=== PATIENT | female | born 1955 | race African-American/Black ===

== ENCOUNTER 2019-01-03 16:00 | Inpatient (IN) | payer MEDICAID ==
[~2019-01-03] VITALS: Ht 167.6 cm; Wt 76.2 kg
[2019-01-03] MEDS ORDERED: KETOROLAC 30MG/ML VIAL IV ONE (18:00)
[2019-01-03 18:50] LABS: BASOPHILS % 0.9 % (0.0-2.0); EOSINOPHILS % 3.1 % (0.0-5.0); HEMATOCRIT. 36.9 % (36.0-48.0); HEMOGLOBIN. 12.7 g/dL (12.0-16.0); LYMPHOCYTES % 27.6 % (20.0-50.0); MEAN CORPUSCULAR VOLUME 84.2 fL (81.0-99.0); MEAN PLATELET VOLUME 8.6 fl (7.4-10.4); MONOCYTES % 8.2 % (2.0-8.0); NEUTROPHILS % 60.2 % (40.0-76.0); PLATELET 118 x1000/uL (130-400); RED BLOOD CELL COUNT 4.38 mill/uL (4.2-5.4); RED CELL DISTRIBUTION WIDTH 12.9 % (11.6-14.6)
[2019-01-03 18:52] LABS: CHLORIDE 99 mEq/L (98-107)
[2019-01-03 18:54] LABS: INR 1.1; PARTIAL THROMBOPLASTIN TIME 29.9 sec (23.4-31.0); PROTHROMBIN TIME 11.2 sec (9.6-11.0)
[2019-01-03 18:56] LABS: ETHANOL BLOOD < 10 mg/dL
[2019-01-03 19:00] LABS: CREATINE KINASE 209 IU/L (26-192)
[2019-01-03] MEDS: DEXT 5%/0.45% NACL 1000ML 1,000 ML IV SCH (22:41)
[2019-01-03] MEDS ORDERED: ONDANSETRON HCL 4MG/2ML INJ IV PRN (22:45)
[2019-01-03] MEDS ORDERED: DOCUSATE SODIUM 100MG CAPSULE PO PRN (22:45)
[2019-01-03] MEDS ORDERED: DEXTROSE 50% WATER 50ML SYRINGE IV PRN (22:45)
[2019-01-03] MEDS ORDERED: TRAMADOL 50MG TABLET PO PRN (22:45)
[2019-01-03] MEDS ORDERED: ACETAMINOPHEN 325MG TABLET PO PRN (22:45)
[2019-01-03] MEDS ORDERED: MAGNESIUM/ALUMINUM HYDROXIDE/SIMETHICONE 30ML UDC PO PRN (22:45)
[2019-01-03] MEDS ORDERED: IPRATROPIUM/ALBUTEROL 0.5-3(2.5)MG/3ML NEB INH PRN (22:45)
[2019-01-03] MEDS ORDERED: GUAIFENESIN 200MG/10ML SUGAR FREE UDC PO PRN (22:45)
[2019-01-03] MEDS ORDERED: NITROGLYCERIN 0.4MG TABLET SL SL PRN (22:45)
[2019-01-03] MEDS ORDERED: LORAZEPAM 0.5MG TABLET PO PRN (22:45)
[2019-01-04] MEDS: CLONIDINE 0.1MG TABLET PO PRN ×3 (01:20→23:01)
[2019-01-04 02:00] VITALS: BP 141/91
[2019-01-04] MEDS: ZOLPIDEM TARTRATE 5MG TABLET PO PRN ×2 (03:26→23:00)
[2019-01-04 04:17] LABS: VITAMIN B12 SERUM 199 pg/mL (211-911)
[2019-01-04 04:34] LABS: FOLIC ACID (FOLATE) SERUM > 20.00 ng/mL (>5.38)
[2019-01-04] MEDS: BLOOD SUGAR DIAGNOSTIC STRIP TEST SCH ×4 (06:40→20:44)
[2019-01-04 08:00] VITALS: BP 160/135
[2019-01-04] MEDS: INSULIN LISPRO 100 UNITS/ML SUBCUT SCH ×4 (08:17→21:15)
[2019-01-04] MEDS: FAMOTIDINE 20MG TABLET PO SCH ×2 (08:26→20:43)
[2019-01-04] MEDS: METOPROLOL TARTRATE 25MG TABLET PO SCH ×2 (08:26→20:44)
[2019-01-04] MEDS: FERROUS SULFATE 300MG/5ML UDC PO SCH ×3 (08:26→16:41)
[2019-01-04] MEDS: ENOXAPARIN 40MG/0.4ML SYR SUBCUT SCH (08:27)
[2019-01-04] MEDS: DEXT 5%/0.45% NACL 1000ML 1,000 ML IV SCH ×2 (08:33→16:41)
[2019-01-04 12:00] VITALS: BP 150/111
[2019-01-04] MEDS: MORPHINE SULFATE 2 MG/ML CPJ (NOT FOR IM USE) IV PRN ×2 (12:05→21:18)
[2019-01-04] MEDS: CYANOCOBALAMIN 1000MCG/ML VIAL IM SCH (12:46)
[2019-01-04 16:00] VITALS: BP 170/100
[2019-01-04 20:00] VITALS: BP_SYST 166; BP_SYST 171; BP_DIAS 100; BP_DIAS 101
[2019-01-05] VITALS: BP 149/99
[2019-01-05] MEDS: DEXT 5%/0.45% NACL 1000ML 1,000 ML IV SCH ×2 (00:37→15:22)
[2019-01-05 04:00] VITALS: BP 154/102
[2019-01-05] MEDS: CLONIDINE 0.1MG TABLET PO PRN ×2 (05:18→12:45)
[2019-01-05] MEDS: BLOOD SUGAR DIAGNOSTIC STRIP TEST SCH ×4 (06:56→21:10)
[2019-01-05] MEDS: INSULIN LISPRO 100 UNITS/ML SUBCUT SCH ×4 (06:56→21:23)
[2019-01-05 08:00] VITALS: BP 140/97
[2019-01-05] MEDS: FAMOTIDINE 20MG TABLET PO SCH ×2 (08:31→21:10)
[2019-01-05] MEDS: CYANOCOBALAMIN 1000MCG/ML VIAL IM SCH (08:31)
[2019-01-05] MEDS: METOPROLOL TARTRATE 25MG TABLET PO SCH ×2 (08:32→21:10)
[2019-01-05] MEDS: ENOXAPARIN 40MG/0.4ML SYR SUBCUT SCH (08:33)
[2019-01-05] MEDS: FERROUS SULFATE 300MG/5ML UDC PO SCH ×3 (08:43→17:14)
[2019-01-05] MEDS: KETOROLAC 15MG/ML VIAL IV PRN ×2 (10:46→21:22)
[2019-01-05 12:00] VITALS: BP 128/100
[2019-01-05] MEDS ORDERED: GADOBENATE DIMEGLUMINE 529 MG/ML 10ML IV ONE (13:12)
[2019-01-05 16:00] VITALS: BP 154/97
[2019-01-05 20:00] VITALS: BP 168/111
[2019-01-05] MEDS: ZOLPIDEM TARTRATE 5MG TABLET PO PRN (21:22)
[2019-01-06] VITALS: BP 158/98
[2019-01-06] MEDS: CLONIDINE 0.1MG TABLET PO PRN (00:44)
[2019-01-06] MEDS: DEXT 5%/0.45% NACL 1000ML 1,000 ML IV SCH ×3 (00:44→21:46)
[2019-01-06 04:00] VITALS: BP 144/97
[2019-01-06] MEDS: BLOOD SUGAR DIAGNOSTIC STRIP TEST SCH ×4 (06:59→21:25)
[2019-01-06] MEDS: INSULIN LISPRO 100 UNITS/ML SUBCUT SCH ×4 (07:07→21:00)
[2019-01-06] MEDS: FERROUS SULFATE 300MG/5ML UDC PO SCH ×3 (07:50→17:31)
[2019-01-06 08:00] VITALS: BP 144/92
[2019-01-06] MEDS: ENOXAPARIN 40MG/0.4ML SYR SUBCUT SCH (09:01)
[2019-01-06] MEDS: METOPROLOL TARTRATE 25MG TABLET PO SCH ×2 (09:01→21:05)
[2019-01-06] MEDS: FAMOTIDINE 20MG TABLET PO SCH ×2 (09:02→21:25)
[2019-01-06] MEDS: CYANOCOBALAMIN 1000MCG/ML VIAL IM SCH (09:02)
[2019-01-06 12:00] VITALS: BP 151/99
[2019-01-06] MEDS ORDERED: BISACODYL 10MG SUPP PR SCH ×2 (12:45→13:15)
[2019-01-06] MEDS ORDERED: LACTULOSE 20G/30ML UDC PO STA (12:52)
[2019-01-06] MEDS: DOCUSATE SODIUM 100MG CAPSULE PO SCH ×2 (12:57→21:00)
[2019-01-06] MEDS: LACTULOSE 20G/30ML UDC PO SCH ×3 (12:58→21:00)
[2019-01-06] MEDS ORDERED: BISACODYL 10MG SUPP PR ONE (13:00)
[2019-01-06] MEDS ORDERED: DOCUSATE SODIUM 100MG CAPSULE PO SCH (13:00)
[2019-01-06] MEDS: KETOROLAC 15MG/ML VIAL IV PRN ×2 (13:01→21:25)
[2019-01-06 16:00] VITALS: BP 99/62
[2019-01-06 20:00] VITALS: BP 165/99
[2019-01-06] MEDS ORDERED: POLYETHYLENE GLYCOL 3350 (17GM) 1 DOSE PACK PO SCH ×2 (21:00)
[2019-01-06] MEDS: ZOLPIDEM TARTRATE 5MG TABLET PO PRN (23:45)
[2019-01-07] VITALS: BP 145/99
[2019-01-07] MEDS: CLONIDINE 0.1MG TABLET PO PRN ×2 (00:02→03:56)
[2019-01-07 04:00] VITALS: BP 151/102
[2019-01-07] MEDS: BLOOD SUGAR DIAGNOSTIC STRIP TEST SCH (07:20)
[2019-01-07] MEDS: INSULIN LISPRO 100 UNITS/ML SUBCUT SCH (07:50)
[2019-01-07] MEDS: FERROUS SULFATE 300MG/5ML UDC PO SCH (07:50)
[2019-01-07] MEDS: CYANOCOBALAMIN 1000MCG/ML VIAL IM SCH (09:00)
[2019-01-07] MEDS: DOCUSATE SODIUM 100MG CAPSULE PO SCH (09:00)
[2019-01-07] MEDS: FAMOTIDINE 20MG TABLET PO SCH (09:00)
[2019-01-07] MEDS: METOPROLOL TARTRATE 25MG TABLET PO SCH (09:00)
[2019-01-07] MEDS ORDERED: DEXT 5%/0.45% NACL KCL 20MEQ/L 1,000 ML IV SCH (13:00)
[2019-01-17] MEDS ORDERED: CYANOCOBALAMIN 1000MCG/ML VIAL IM SCH (09:00)
== END 2019-01-07 08:35 | disposition left against medical advice (07) | DRG 340 ==
LOC: ER 16:40 → 6EST 22:26 → EDBEDREQ 22:31 → EDBEDREQTM 22:31 → ENRESERV 01-04 00:26
PROVIDERS: ADMIT Internal Medicine; ATTEND Internal Medicine
DX: S72.141A Displaced intertrochanteric fracture of right femur, initial encounter for closed fracture (principal); D69.6 Thrombocytopenia, unspecified; I69.351 Hemiplegia and hemiparesis following cerebral infarction affecting right dominant side; E87.1 Hypo-osmolality and hyponatremia; E11.9 Type 2 diabetes mellitus without complications; E53.8 Deficiency of other specified B group vitamins; I10 Essential (primary) hypertension; M21.371 Foot drop, right foot; G89.29 Other chronic pain; M25.561 Pain in right knee; E61.1 Iron deficiency; M48.061 Spinal stenosis, lumbar region without neurogenic claudication; M47.9 Spondylosis, unspecified; Z79.4 Long term (current) use of insulin; M46.40 Discitis, unspecified, site unspecified; Z83.3 Family history of diabetes mellitus; Z82.49 Family history of ischemic heart disease and other diseases of the circulatory system; Z88.9 Allergy status to unspecified drugs, medicaments and biological substances; W01.0XXA Fall on same level from slipping, tripping and stumbling without subsequent striking against object, initial encounter; Y93.89 Activity, other specified; Y92.89 Other specified places as the place of occurrence of the external cause; Y99.8 Other external cause status; Z79.84 Long term (current) use of oral hypoglycemic drugs
CPT/HCPCS: 36415; 71045; 72148; 73502; 73700; 80061; 80320; 82550; 82607; 82746; 82962; 83036; 83540; 83550; 84443; 85651; 86850; 86900; 93005; 93970; 96374; 97162; 97166; 99285; A9577; J1650; J1815; J1885; J2270; J3420; G0480

== ENCOUNTER 2020-01-20 19:50 | Inpatient (IN) | payer MEDICARE, MEDICAID ==
[~2020-01-20] VITALS: Ht 167.6 cm; Wt 80.3 kg
[2020-01-20 20:00] VITALS: BP 151/89
[2020-01-20] MEDS ORDERED: HYDROCODONE/ACETAMINOPHEN 5/325MG TABLET PO PRN (21:45)
[2020-01-20] MEDS ORDERED: ZOLPIDEM TARTRATE 5MG TABLET PO PRN (21:45)
[2020-01-20] MEDS ORDERED: NITROGLYCERIN 0.4MG TABLET SL SL PRN (21:45)
[2020-01-20] MEDS ORDERED: ONDANSETRON HCL 4MG TABLET PO PRN (21:45)
[2020-01-20] MEDS ORDERED: DEXTROSE 50% WATER 50ML SYRINGE IV PRN (21:45)
[2020-01-20] MEDS ORDERED: CLONIDINE 0.1MG TABLET PO PRN (21:45)
[2020-01-20] MEDS: ACETAMINOPHEN 325MG TABLET PO PRN (22:40)
[2020-01-20] MEDS: BLOOD SUGAR DIAGNOSTIC STRIP TEST SCH (22:40)
[2020-01-20] MEDS: INSULIN LISPRO 100 UNITS/ML SUBCUT SCH (22:50)
[2020-01-20] MEDS: HYDRALAZINE HCL 50MG TABLET PO SCH (22:54)
[2020-01-21] MEDS ORDERED: LISI-604 PO (00:09)
[2020-01-21] MEDS ORDERED: GABA-529 PO (00:09)
[2020-01-21] MEDS ORDERED: GLIP10TA10 PO (00:09)
[2020-01-21] MEDS ORDERED: OMEP20CA14 PO (00:09)
[2020-01-21] MEDS ORDERED: TRIA1TAB92 PO (00:09)
[2020-01-21] MEDS: BLOOD SUGAR DIAGNOSTIC STRIP TEST SCH ×4 (06:07→21:40)
[2020-01-21] MEDS: HYDRALAZINE HCL 50MG TABLET PO SCH ×3 (06:07→21:32)
[2020-01-21 06:38] LABS: CHLORIDE 99 mEq/L (98-107)
[2020-01-21 06:49] LABS: BASOPHILS % 1.2 % (0.0-2.0); EOSINOPHILS % 5.5 % (0.0-5.0); HEMOGLOBIN. 11.8 g/dL (12.0-16.0); LYMPHOCYTES % 33.4 % (20.0-50.0); MEAN CORPUSCULAR HEMOGLOBIN 28.2 pg (28.0-32.0); MEAN CORPUSCULAR VOLUME 83.9 fL (81.0-99.0); MONOCYTES % 10.4 % (2.0-8.0); NEUTROPHILS % 49.5 % (40.0-76.0); PLATELET 123 x1000/uL (130-400); RED BLOOD CELL COUNT 4.18 mill/uL (4.2-5.4); RED CELL DISTRIBUTION WIDTH 13.5 % (11.6-14.6)
[2020-01-21] MEDS: INSULIN LISPRO 100 UNITS/ML SUBCUT SCH ×4 (06:49→22:40)
[2020-01-21 07:35] VITALS: BP 151/86
[2020-01-21] MEDS: POTASSIUM CHLORIDE 20MEQ TABLET SR PO SCH (08:38)
[2020-01-21] MEDS: LOSARTAN POTASSIUM 100 MG TABLET PO SCH (08:38)
[2020-01-21] MEDS: DOCUSATE SODIUM 250MG CAPSULE PO SCH (08:38)
[2020-01-21] MEDS: METHADONE HCL 10MG TABLET PO SCH (08:39)
[2020-01-21] MEDS: ENOXAPARIN 40MG/0.4ML SYR SUBCUT SCH (08:40)
[2020-01-21] MEDS ORDERED: HYDRALAZINE HCL 50MG TABLET PO SCH (09:00)
[2020-01-21] MEDS: LACTULOSE 20G/30ML UDC PO SCH ×3 (12:06→21:40)
[2020-01-21] MEDS ORDERED: POTASSIUM CHLORIDE 20MEQ TABLET SR PO NR (14:45)
[2020-01-21 20:00] VITALS: BP 149/91
[2020-01-22 06:20] LABS: HEMATOCRIT. 33.6 % (36.0-48.0); HEMOGLOBIN. 11.4 g/dL (12.0-16.0); MEAN CORPUSCULAR HEMOGLOBIN 28.3 pg (28.0-32.0); MEAN CORPUSCULAR VOLUME 83.6 fL (81.0-99.0); MEAN PLATELET VOLUME 7.9 fl (7.4-10.4); MONOCYTES % 9.8 % (2.0-8.0); NEUTROPHILS % 45.2 % (40.0-76.0); PLATELET 116 x1000/uL (130-400); RED BLOOD CELL COUNT 4.03 mill/uL (4.2-5.4); RED CELL DISTRIBUTION WIDTH 13.5 % (11.6-14.6)
[2020-01-22 06:36] LABS: CHLORIDE 101 mEq/L (98-107)
[2020-01-22 06:43] LABS: FOLIC ACID (FOLATE) SERUM 15.5 ng/mL (>5.38)
[2020-01-22 06:44] LABS: LDL CHOLESTEROL 45 mg/dL (5-100); TOTAL IRON BINDING CAPACITY 276 ug/dL (250-450)
[2020-01-22 06:47] LABS: CREATINE KINASE 94 IU/L (26-192); HDL CHOLESTEROL 54 mg/dL (40-59)
[2020-01-22] MEDS: HYDRALAZINE HCL 50MG TABLET PO SCH ×3 (06:47→21:13)
[2020-01-22] MEDS: BLOOD SUGAR DIAGNOSTIC STRIP TEST SCH ×4 (06:47→21:14)
[2020-01-22] MEDS: INSULIN LISPRO 100 UNITS/ML SUBCUT SCH ×4 (06:58→21:00)
[2020-01-22 07:58] VITALS: BP 149/91
[2020-01-22 08:00] VITALS: BP 149/91
[2020-01-22 08:01] VITALS: BP 125/62
[2020-01-22] MEDS: DOCUSATE SODIUM 250MG CAPSULE PO SCH ×2 (08:35→16:18)
[2020-01-22] MEDS: METHADONE HCL 10MG TABLET PO SCH (08:36)
[2020-01-22] MEDS: POTASSIUM CHLORIDE 20MEQ TABLET SR PO SCH (08:37)
[2020-01-22] MEDS: LOSARTAN POTASSIUM 100 MG TABLET PO SCH (08:37)
[2020-01-22] MEDS: ENOXAPARIN 40MG/0.4ML SYR SUBCUT SCH (08:38)
[2020-01-22] MEDS: CYANOCOBALAMIN 1000MCG/ML VIAL IM SCH (14:17)
[2020-01-22 20:00] VITALS: BP 147/95
[2020-01-22] MEDS: POLYETHYLENE GLYCOL 3350 (17GM) 1 DOSE PACK PO SCH (21:13)
[2020-01-22] MEDS: ACETAMINOPHEN 325MG TABLET PO PRN (21:13)
[2020-01-23] MEDS: BLOOD SUGAR DIAGNOSTIC STRIP TEST SCH ×4 (06:42→20:16)
[2020-01-23] MEDS: HYDRALAZINE HCL 50MG TABLET PO SCH ×3 (06:45→21:07)
[2020-01-23] MEDS: INSULIN LISPRO 100 UNITS/ML SUBCUT SCH ×4 (06:54→21:10)
[2020-01-23 08:00] VITALS: BP 133/80
[2020-01-23] MEDS: LACTULOSE 20G/30ML UDC PO SCH ×2 (09:22→13:33)
[2020-01-23] MEDS: DOCUSATE SODIUM 250MG CAPSULE PO SCH ×2 (09:22→17:00)
[2020-01-23] MEDS: POTASSIUM CHLORIDE 20MEQ TABLET SR PO SCH (09:22)
[2020-01-23] MEDS: LOSARTAN POTASSIUM 100 MG TABLET PO SCH (09:22)
[2020-01-23] MEDS: CYANOCOBALAMIN 1000MCG/ML VIAL IM SCH (09:22)
[2020-01-23] MEDS: ENOXAPARIN 40MG/0.4ML SYR SUBCUT SCH (09:23)
[2020-01-23] MEDS: METHADONE HCL 10MG TABLET PO SCH (09:24)
[2020-01-23] MEDS ORDERED: FAMOTIDINE 20MG TABLET PO SCH ×2 (11:45→21:00)
[2020-01-23] MEDS: ACETAMINOPHEN 325MG TABLET PO PRN ×2 (12:00→20:14)
[2020-01-23] MEDS: PANTOPRAZOLE 40MG DR TABLET PO SCH (14:32)
[2020-01-23 20:00] VITALS: BP 153/109
[2020-01-23] MEDS: POLYETHYLENE GLYCOL 3350 (17GM) 1 DOSE PACK PO SCH (20:15)
[2020-01-23 21:05] VITALS: BP 136/99
[2020-01-24] MEDS: HYDRALAZINE HCL 50MG TABLET PO SCH ×3 (05:33→21:13)
[2020-01-24] MEDS: INSULIN LISPRO 100 UNITS/ML SUBCUT SCH ×4 (05:35→21:29)
[2020-01-24] MEDS: BLOOD SUGAR DIAGNOSTIC STRIP TEST SCH ×4 (05:35→21:13)
[2020-01-24] MEDS: ACETAMINOPHEN 325MG TABLET PO PRN ×2 (06:38→21:14)
[2020-01-24 08:00] VITALS: BP 134/94
[2020-01-24 08:34] LABS: CLARITY URINE CLOUDY (CLEAR); COLOR URINE YELLOW (YELLOW); KETONES URINE NEGATIVE (NEGATIVE); LEUKOCYTE ESTERASE URINE 2+ (NEGATIVE); NITRITE URINE NEGATIVE (NEGATIVE); OCCULT BLOOD URINE NEGATIVE (NEGATIVE); PH URINE 6.5 (4.5-8.0); PROTEIN URINE NEGATIVE (NEGATIVE); SPECIFIC GRAVITY URINE 1.009 (1.005-1.030)
[2020-01-24] MEDS: CYANOCOBALAMIN 1000MCG/ML VIAL IM SCH (09:27)
[2020-01-24] MEDS: LOSARTAN POTASSIUM 100 MG TABLET PO SCH (09:27)
[2020-01-24] MEDS: PANTOPRAZOLE 40MG DR TABLET PO SCH (09:27)
[2020-01-24] MEDS: DOCUSATE SODIUM 250MG CAPSULE PO SCH ×2 (09:27→17:32)
[2020-01-24] MEDS: ENOXAPARIN 40MG/0.4ML SYR SUBCUT SCH (09:27)
[2020-01-24] MEDS: POTASSIUM CHLORIDE 20MEQ TABLET SR PO SCH (09:28)
[2020-01-24] MEDS: METHADONE HCL 10MG TABLET PO SCH (09:29)
[2020-01-24 20:00] VITALS: BP 149/94
[2020-01-24] MEDS: POLYETHYLENE GLYCOL 3350 (17GM) 1 DOSE PACK PO SCH (21:13)
[2020-01-25] MEDS: ACETAMINOPHEN 325MG TABLET PO PRN ×3 (05:46→22:07)
[2020-01-25] MEDS: HYDRALAZINE HCL 50MG TABLET PO SCH ×3 (05:46→21:30)
[2020-01-25] MEDS: BLOOD SUGAR DIAGNOSTIC STRIP TEST SCH ×4 (05:49→21:30)
[2020-01-25] MEDS: INSULIN LISPRO 100 UNITS/ML SUBCUT SCH ×4 (06:15→21:30)
[2020-01-25 07:46] VITALS: BP_SYST 118; BP_SYST 171; BP_DIAS 61; BP_DIAS 94
[2020-01-25] MEDS: POTASSIUM CHLORIDE 20MEQ TABLET SR PO SCH (08:49)
[2020-01-25] MEDS: CYANOCOBALAMIN 1000MCG/ML VIAL IM SCH (08:49)
[2020-01-25] MEDS: PANTOPRAZOLE 40MG DR TABLET PO SCH (08:49)
[2020-01-25] MEDS: DOCUSATE SODIUM 250MG CAPSULE PO SCH ×2 (08:49→17:05)
[2020-01-25] MEDS: LOSARTAN POTASSIUM 100 MG TABLET PO SCH (08:49)
[2020-01-25] MEDS: ENOXAPARIN 40MG/0.4ML SYR SUBCUT SCH ×2 (08:50→08:56)
[2020-01-25] MEDS: METHADONE HCL 10MG TABLET PO SCH (08:50)
[2020-01-25 19:45] VITALS: BP 153/97
[2020-01-25] MEDS: POLYETHYLENE GLYCOL 3350 (17GM) 1 DOSE PACK PO SCH (21:29)
[2020-01-25] MEDS ORDERED: ZOLPIDEM TARTRATE 5MG TABLET PO PRN (23:00)
[2020-01-26] MEDS: HYDRALAZINE HCL 50MG TABLET PO SCH ×3 (06:24→21:37)
[2020-01-26] MEDS: BLOOD SUGAR DIAGNOSTIC STRIP TEST SCH ×4 (06:24→21:37)
[2020-01-26] MEDS: INSULIN LISPRO 100 UNITS/ML SUBCUT SCH ×4 (06:40→22:17)
[2020-01-26 08:10] VITALS: BP 148/92
[2020-01-26] MEDS: DOCUSATE SODIUM 250MG CAPSULE PO SCH ×2 (08:44→16:58)
[2020-01-26] MEDS: PANTOPRAZOLE 40MG DR TABLET PO SCH (08:44)
[2020-01-26] MEDS: LOSARTAN POTASSIUM 100 MG TABLET PO SCH (08:44)
[2020-01-26] MEDS: ENOXAPARIN 40MG/0.4ML SYR SUBCUT SCH (08:45)
[2020-01-26] MEDS: METHADONE HCL 10MG TABLET PO SCH (08:45)
[2020-01-26] MEDS: CYANOCOBALAMIN 1000MCG/ML VIAL IM SCH (08:45)
[2020-01-26] MEDS: POTASSIUM CHLORIDE 20MEQ TABLET SR PO SCH (08:45)
[2020-01-26] MEDS: ACETAMINOPHEN 325MG TABLET PO PRN ×2 (11:00→21:37)
[2020-01-26] MEDS: LACTULOSE 20G/30ML UDC PO PRN (16:57)
[2020-01-26 20:00] VITALS: BP 153/98
[2020-01-26] MEDS: POLYETHYLENE GLYCOL 3350 (17GM) 1 DOSE PACK PO SCH (21:36)
[2020-01-27] MEDS: BLOOD SUGAR DIAGNOSTIC STRIP TEST SCH ×4 (06:12→21:19)
[2020-01-27] MEDS: HYDRALAZINE HCL 50MG TABLET PO SCH ×3 (06:12→21:10)
[2020-01-27] MEDS: INSULIN LISPRO 100 UNITS/ML SUBCUT SCH ×4 (06:12→21:29)
[2020-01-27 07:51] VITALS: BP 159/106
[2020-01-27 08:09] VITALS: BP 159/106
[2020-01-27] MEDS: ENOXAPARIN 40MG/0.4ML SYR SUBCUT SCH (09:00)
[2020-01-27] MEDS: CYANOCOBALAMIN 1000MCG/ML VIAL IM SCH (09:17)
[2020-01-27] MEDS: LOSARTAN POTASSIUM 100 MG TABLET PO SCH (09:17)
[2020-01-27] MEDS: LACTULOSE 20G/30ML UDC PO PRN ×2 (09:17→17:50)
[2020-01-27] MEDS: DOCUSATE SODIUM 250MG CAPSULE PO SCH ×2 (09:17→17:50)
[2020-01-27] MEDS: PANTOPRAZOLE 40MG DR TABLET PO SCH (09:17)
[2020-01-27] MEDS: POTASSIUM CHLORIDE 20MEQ TABLET SR PO SCH (09:18)
[2020-01-27] MEDS ORDERED: DILTIAZEM HCL 30MG TABLET PO SCH (12:00)
[2020-01-27] MEDS: METHADONE HCL 10MG TABLET PO SCH (12:36)
[2020-01-27] MEDS: METOPROLOL TARTRATE 25MG TABLET PO SCH ×2 (12:36→21:10)
[2020-01-27] MEDS: ACETAMINOPHEN 325MG TABLET PO PRN (17:58)
[2020-01-27 20:00] VITALS: BP 145/102
[2020-01-27] MEDS: SULFAMETHOXAZOLE/TRIMETHOPRIM 400/80MG TAB PO SCH (21:20)
[2020-01-27] MEDS: POLYETHYLENE GLYCOL 3350 (17GM) 1 DOSE PACK PO SCH (21:23)
[2020-01-28] MEDS: BLOOD SUGAR DIAGNOSTIC STRIP TEST SCH ×4 (06:07→21:17)
[2020-01-28] MEDS: HYDRALAZINE HCL 50MG TABLET PO SCH ×3 (06:12→21:17)
[2020-01-28] MEDS: INSULIN LISPRO 100 UNITS/ML SUBCUT SCH ×4 (07:36→21:00)
[2020-01-28 07:57] VITALS: BP 144/92
[2020-01-28] MEDS: METOPROLOL TARTRATE 25MG TABLET PO SCH ×2 (08:41→21:17)
[2020-01-28] MEDS: CYANOCOBALAMIN 1000MCG/ML VIAL IM SCH (08:41)
[2020-01-28] MEDS: LOSARTAN POTASSIUM 100 MG TABLET PO SCH (08:42)
[2020-01-28] MEDS: DOCUSATE SODIUM 250MG CAPSULE PO SCH ×2 (08:42→16:33)
[2020-01-28] MEDS: METHADONE HCL 10MG TABLET PO SCH (08:42)
[2020-01-28] MEDS: SULFAMETHOXAZOLE/TRIMETHOPRIM 400/80MG TAB PO SCH ×2 (08:42→22:07)
[2020-01-28] MEDS: POTASSIUM CHLORIDE 20MEQ TABLET SR PO SCH (08:42)
[2020-01-28] MEDS: PANTOPRAZOLE 40MG DR TABLET PO SCH (08:42)
[2020-01-28] MEDS: ACETAMINOPHEN 325MG TABLET PO PRN (08:44)
[2020-01-28] MEDS: ENOXAPARIN 40MG/0.4ML SYR SUBCUT SCH (08:45)
[2020-01-28 14:15] VITALS: BP 100/71
[2020-01-28] MEDS: LACTULOSE 20G/30ML UDC PO PRN (16:51)
[2020-01-28 20:00] VITALS: BP 150/95
[2020-01-28] MEDS: POLYETHYLENE GLYCOL 3350 (17GM) 1 DOSE PACK PO SCH (21:16)
[2020-01-29] MEDS: BLOOD SUGAR DIAGNOSTIC STRIP TEST SCH ×4 (06:15→21:00)
[2020-01-29] MEDS: HYDRALAZINE HCL 50MG TABLET PO SCH ×3 (06:15→21:35)
[2020-01-29] MEDS: INSULIN LISPRO 100 UNITS/ML SUBCUT SCH ×4 (06:18→21:00)
[2020-01-29 08:19] VITALS: BP 130/77
[2020-01-29] MEDS: LOSARTAN POTASSIUM 100 MG TABLET PO SCH (09:19)
[2020-01-29] MEDS: PANTOPRAZOLE 40MG DR TABLET PO SCH (09:19)
[2020-01-29] MEDS: DOCUSATE SODIUM 250MG CAPSULE PO SCH ×2 (09:19→16:57)
[2020-01-29] MEDS: METOPROLOL TARTRATE 25MG TABLET PO SCH ×2 (09:20→21:35)
[2020-01-29] MEDS: SULFAMETHOXAZOLE/TRIMETHOPRIM 400/80MG TAB PO SCH ×2 (09:20→21:34)
[2020-01-29] MEDS: ENOXAPARIN 40MG/0.4ML SYR SUBCUT SCH (09:20)
[2020-01-29] MEDS: POTASSIUM CHLORIDE 20MEQ TABLET SR PO SCH (09:21)
[2020-01-29] MEDS: METHADONE HCL 10MG TABLET PO SCH (09:21)
[2020-01-29] MEDS: ACETAMINOPHEN 325MG TABLET PO PRN (09:57)
[2020-01-29 13:11] LABS: 25-HYDROXY VITAMIN D3 39 ng/mL (.)
[2020-01-29 20:00] VITALS: BP 147/96
[2020-01-29] MEDS: POLYETHYLENE GLYCOL 3350 (17GM) 1 DOSE PACK PO SCH (21:35)
[2020-01-30] MEDS: HYDRALAZINE HCL 50MG TABLET PO SCH ×3 (05:48→21:19)
[2020-01-30] MEDS: BLOOD SUGAR DIAGNOSTIC STRIP TEST SCH ×4 (05:48→21:18)
[2020-01-30 06:30] LABS: CHLORIDE 99 mEq/L (98-107)
[2020-01-30 06:49] LABS: HEMATOCRIT 34.2 % (36.0-48.0); HEMOGLOBIN 11.5 g/dL (12.0-16.0); MEAN CORPUSCULAR HEMOGLOBIN 28.4 pg (28.0-32.0); MEAN CORPUSCULAR VOLUME 84.3 fL (81.0-99.0); PLATELET 122 x1000/uL (130-400); RED BLOOD CELL COUNT 4.05 mill/uL (4.2-5.4); RED CELL DISTRIBUTION WIDTH 14.2 % (11.6-14.6)
[2020-01-30] MEDS: INSULIN LISPRO 100 UNITS/ML SUBCUT SCH ×4 (06:50→21:00)
[2020-01-30] MEDS: DOCUSATE SODIUM 250MG CAPSULE PO SCH ×2 (09:21→16:45)
[2020-01-30] MEDS: SULFAMETHOXAZOLE/TRIMETHOPRIM 400/80MG TAB PO SCH ×2 (09:22→21:18)
[2020-01-30] MEDS: POTASSIUM CHLORIDE 20MEQ TABLET SR PO SCH (09:22)
[2020-01-30] MEDS: METOPROLOL TARTRATE 25MG TABLET PO SCH ×2 (09:22→21:18)
[2020-01-30] MEDS: LOSARTAN POTASSIUM 100 MG TABLET PO SCH (09:22)
[2020-01-30] MEDS: ENOXAPARIN 40MG/0.4ML SYR SUBCUT SCH (09:22)
[2020-01-30] MEDS: PANTOPRAZOLE 40MG DR TABLET PO SCH (09:22)
[2020-01-30] MEDS: METHADONE HCL 10MG TABLET PO SCH (09:23)
[2020-01-30 13:35] VITALS: BP 116/78
[2020-01-30 20:00] VITALS: BP 130/77
[2020-01-30] MEDS: POLYETHYLENE GLYCOL 3350 (17GM) 1 DOSE PACK PO SCH (21:18)
[2020-01-31] MEDS: HYDRALAZINE HCL 50MG TABLET PO SCH ×3 (06:20→21:02)
[2020-01-31] MEDS: BLOOD SUGAR DIAGNOSTIC STRIP TEST SCH ×4 (06:20→20:52)
[2020-01-31] MEDS: INSULIN LISPRO 100 UNITS/ML SUBCUT SCH ×4 (06:20→20:52)
[2020-01-31] MEDS: ACETAMINOPHEN 325MG TABLET PO PRN (06:21)
[2020-01-31 07:58] VITALS: BP 137/85
[2020-01-31] MEDS: METHADONE HCL 10MG TABLET PO SCH (08:04)
[2020-01-31] MEDS: DOCUSATE SODIUM 250MG CAPSULE PO SCH ×3 (08:04→17:00)
[2020-01-31] MEDS: PANTOPRAZOLE 40MG DR TABLET PO SCH (08:05)
[2020-01-31] MEDS: LOSARTAN POTASSIUM 100 MG TABLET PO SCH (08:05)
[2020-01-31] MEDS: ENOXAPARIN 40MG/0.4ML SYR SUBCUT SCH (08:05)
[2020-01-31] MEDS: POTASSIUM CHLORIDE 20MEQ TABLET SR PO SCH (08:05)
[2020-01-31] MEDS: METOPROLOL TARTRATE 25MG TABLET PO SCH ×2 (08:05→20:52)
[2020-01-31] MEDS: SULFAMETHOXAZOLE/TRIMETHOPRIM 400/80MG TAB PO SCH ×2 (12:02→20:52)
[2020-01-31] MEDS ORDERED: ZOLPIDEM TARTRATE 5MG TABLET PO PRN (16:30)
[2020-01-31 20:00] VITALS: BP 145/90
[2020-01-31] MEDS: POLYETHYLENE GLYCOL 3350 (17GM) 1 DOSE PACK PO SCH (20:52)
[2020-02-01] MEDS: HYDRALAZINE HCL 50MG TABLET PO SCH ×3 (05:41→21:02)
[2020-02-01] MEDS: BLOOD SUGAR DIAGNOSTIC STRIP TEST SCH ×4 (05:41→21:02)
[2020-02-01] MEDS: INSULIN LISPRO 100 UNITS/ML SUBCUT SCH ×4 (05:41→21:00)
[2020-02-01 06:19] LABS: CHLORIDE 101 mEq/L (98-107)
[2020-02-01 06:20] LABS: HEMATOCRIT. 33.6 % (36.0-48.0); HEMOGLOBIN. 11.2 g/dL (12.0-16.0); MEAN CORPUSCULAR HEMOGLOBIN 28.2 pg (28.0-32.0); MEAN CORPUSCULAR VOLUME 84.9 fL (81.0-99.0); MEAN PLATELET VOLUME 8.2 fl (7.4-10.4); RED BLOOD CELL COUNT 3.96 mill/uL (4.2-5.4); RED CELL DISTRIBUTION WIDTH 14.1 % (11.6-14.6)
[2020-02-01 06:56] LABS: PLATELET 108 x1000/uL (130-400)
[2020-02-01 08:00] VITALS: BP 139/74
[2020-02-01] MEDS: LOSARTAN POTASSIUM 100 MG TABLET PO SCH (08:51)
[2020-02-01] MEDS: DOCUSATE SODIUM 250MG CAPSULE PO SCH ×3 (08:51→16:33)
[2020-02-01] MEDS: POTASSIUM CHLORIDE 20MEQ TABLET SR PO SCH (08:51)
[2020-02-01] MEDS: PANTOPRAZOLE 40MG DR TABLET PO SCH (08:51)
[2020-02-01] MEDS: METOPROLOL TARTRATE 25MG TABLET PO SCH ×2 (08:53→21:02)
[2020-02-01] MEDS: ENOXAPARIN 40MG/0.4ML SYR SUBCUT SCH (08:54)
[2020-02-01] MEDS: METHADONE HCL 10MG TABLET PO SCH (08:54)
[2020-02-01] MEDS ORDERED: FILGRASTIM-TBO 480 MCG/0.8 ML SYRINGE SQ SCH (09:00)
[2020-02-01] MEDS: SULFAMETHOXAZOLE/TRIMETHOPRIM 400/80MG TAB PO SCH (09:33)
[2020-02-01 10:32] VITALS: BP 139/74
[2020-02-01 12:16] LABS: PLATELET ESTIMATE DECREASED
[2020-02-01 20:00] VITALS: BP 114/76
[2020-02-01] MEDS: POLYETHYLENE GLYCOL 3350 (17GM) 1 DOSE PACK PO SCH (21:00)
[2020-02-02] MEDS: INSULIN LISPRO 100 UNITS/ML SUBCUT SCH ×4 (05:33→21:00)
[2020-02-02] MEDS: BLOOD SUGAR DIAGNOSTIC STRIP TEST SCH ×4 (05:33→21:17)
[2020-02-02] MEDS: HYDRALAZINE HCL 50MG TABLET PO SCH ×3 (06:12→21:17)
[2020-02-02 07:19] VITALS: BP 149/86
[2020-02-02 07:31] LABS: BASOPHILS % 0.3 % (0.0-2.0); EOSINOPHILS % 1.2 % (0.0-5.0); HEMATOCRIT. 34.1 % (36.0-48.0); HEMOGLOBIN. 11.6 g/dL (12.0-16.0); LYMPHOCYTES % 13.1 % (20.0-50.0); MEAN CORPUSCULAR HEMOGLOBIN 28.9 pg (28.0-32.0); MEAN CORPUSCULAR VOLUME 84.7 fL (81.0-99.0); MEAN PLATELET VOLUME 8.7 fl (7.4-10.4); MONOCYTES % 5.2 % (2.0-8.0); NEUTROPHILS % 80.2 % (40.0-76.0); PLATELET 105 x1000/uL (130-400); RED BLOOD CELL COUNT 4.03 mill/uL (4.2-5.4); RED CELL DISTRIBUTION WIDTH 14.5 % (11.6-14.6)
[2020-02-02] MEDS: PANTOPRAZOLE 40MG DR TABLET PO SCH (09:32)
[2020-02-02] MEDS: DOCUSATE SODIUM 250MG CAPSULE PO SCH ×2 (09:32→17:39)
[2020-02-02] MEDS: ENOXAPARIN 40MG/0.4ML SYR SUBCUT SCH (09:32)
[2020-02-02] MEDS: LOSARTAN POTASSIUM 100 MG TABLET PO SCH (09:32)
[2020-02-02] MEDS: METOPROLOL TARTRATE 25MG TABLET PO SCH ×2 (09:32→21:16)
[2020-02-02] MEDS: POTASSIUM CHLORIDE 20MEQ TABLET SR PO SCH (09:32)
[2020-02-02] MEDS: METHADONE HCL 10MG TABLET PO SCH (09:33)
[2020-02-02 20:00] VITALS: BP 158/90
[2020-02-02] MEDS ORDERED: FILGRASTIM-TBO 480 MCG/0.8 ML SYRINGE SQ SCH (21:00)
[2020-02-02] MEDS: POLYETHYLENE GLYCOL 3350 (17GM) 1 DOSE PACK PO SCH (21:18)
[2020-02-03] MEDS: HYDRALAZINE HCL 50MG TABLET PO SCH (05:47)
[2020-02-03] MEDS: BLOOD SUGAR DIAGNOSTIC STRIP TEST SCH ×2 (05:52→11:15)
[2020-02-03 07:45] VITALS: BP 148/99
[2020-02-03] MEDS: INSULIN LISPRO 100 UNITS/ML SUBCUT SCH ×2 (07:48→11:56)
[2020-02-03] MEDS: ENOXAPARIN 40MG/0.4ML SYR SUBCUT SCH (08:42)
[2020-02-03] MEDS: PANTOPRAZOLE 40MG DR TABLET PO SCH (08:42)
[2020-02-03] MEDS: METHADONE HCL 10MG TABLET PO SCH (08:43)
[2020-02-03] MEDS: METOPROLOL TARTRATE 25MG TABLET PO SCH (08:43)
[2020-02-03] MEDS: DOCUSATE SODIUM 250MG CAPSULE PO SCH (08:43)
[2020-02-03] MEDS: POTASSIUM CHLORIDE 20MEQ TABLET SR PO SCH (08:43)
[2020-02-03] MEDS: LOSARTAN POTASSIUM 100 MG TABLET PO SCH (08:43)
[2020-02-03 11:21] VITALS: BP 135/79
[2020-02-04] MEDS ORDERED: CYANOCOBALAMIN 1000MCG/ML VIAL IM SCH (09:00)
[2020-02-05 13:11] LABS: DRVVT LA 40.9 sec (0.0-47.0); PTT-LA 40.6 sec (0.0-51.9)
[2020-02-05 14:11] LABS: LUPUS ANTICOAG INTERPRETATION Comment: (.)
== END 2020-02-03 12:05 | DRG 535 ==
PROVIDERS: ADMIT Physical Medicine & Rehabilitation Spinal Cord Injury Medicine; ATTEND Hospitalist
DX: S72.111A Displaced fracture of greater trochanter of right femur, initial encounter for closed fracture (principal); E43 Unspecified severe protein-calorie malnutrition; G93.41 Metabolic encephalopathy; E87.1 Hypo-osmolality and hyponatremia; M62.82 Rhabdomyolysis; N39.0 Urinary tract infection, site not specified; I69.351 Hemiplegia and hemiparesis following cerebral infarction affecting right dominant side; D64.9 Anemia, unspecified; D69.6 Thrombocytopenia, unspecified; D72.819 Decreased white blood cell count, unspecified; E11.65 Type 2 diabetes mellitus with hyperglycemia; E87.5 Hyperkalemia; E87.6 Hypokalemia; F17.210 Nicotine dependence, cigarettes, uncomplicated; I10 Essential (primary) hypertension; J44.9 Chronic obstructive pulmonary disease, unspecified; E66.9 Obesity, unspecified; F03.90 Unspecified dementia, unspecified severity, without behavioral disturbance, psychotic disturbance, mood disturbance, and anxiety; E53.8 Deficiency of other specified B group vitamins; R26.89 Other abnormalities of gait and mobility; W18.39XA Other fall on same level, initial encounter; Y93.89 Activity, other specified; Y99.8 Other external cause status; Y92.89 Other specified places as the place of occurrence of the external cause; Z90.12 Acquired absence of left breast and nipple; Z85.3 Personal history of malignant neoplasm of breast; Z68.28 Body mass index [BMI] 28.0-28.9, adult; Z91.018 Allergy to other foods
CPT/HCPCS: 36415; 80048; 80053; 80061; 81003; 82306; 82550; 82607; 82728; 82746; 82962; 83036; 83540; 83550; 83735; 84100; 84134; 84443; 85025; 85027; 85049; 85613; 85732; 86038; 86803; 87077; 87186; 87635; 92523; 92610; 93970; 97110; 97116; 97162; 97166; 97530; 97535; J1442; J1650; J1815; J3420